=== PATIENT | male | born 1960 | race Native Hawaiian/Other Pacific Islander ===

== ENCOUNTER 2018-07-22 19:31 | Emergency (ER) | payer OTHER ==
[~2018-07-22] VITALS: Ht 182.9 cm; Wt 136.1 kg
[~2018-07-22 19:31] MED LIST: AMANTADINE100 MG PO; AMLO2.5T PO; ANTACID OR; ASA LO-DOSE81 MG OR; ASCORBIC ACD500 MG OR; BAYER ASPIRIN E81 MG PO; BENZTROPINE0.5 MG PO; CELEXA40 MG PO; CITALOPRAM40 MG PO; CLIN300C PO; DIOVAN320 MG PO; DIVA250T2 PO; DIVALPROEX125 M1 OR; DIVALPROEX250 M1 OR; DIVALPROEX500 MG PO; EASY-LAX100 MG PO; EMOLOIN22; FIBER LAXATIV0.52 GM OR; FINA5TAB2 PO; FORTAMET500 MG PO; FUROSEMIDE20 MG PO; GUAIFENESIN DM PO; HYDRALAZINE25 MG PO; INSUINJP SC; LATA0.00 OP; LEVETIRACETA500 MG OR; LIPITOR20 MG PO; LOPE2CAP17 PO; LORTAB 7.5-3251 TAB PO; MAGNSUS68 PO; MEDR10TA4 PO; MEDR2.5T19 PO; METO50TA27 PO; MULTI VITAMIN A1 TAB PO; NOVOLOG SC; PANT40TA PO; PROSCAR5 MG PO; RISP1TAB PO; ROWEEPRA500 MG PO; SEROQUEL25 MG PO; SODIUM CHLORIDE XX; TYLENOL325 MG OR; VALSARTAN320 MG PO; VITAMIN C1 CH1 PO; XALATAN0.005 % OP; ZINC SULFATE220 MG OR; [UNRECOGNIZED DRUG - OTHER] OR
[2018-07-22 20:11] LABS: PLATELET COUNT 152 K/uL (142-355)
[2018-07-22 20:19] LABS: POTASSIUM 4.5 mmol/L (3.6-5.2)
[2018-07-22] MEDS ORDERED: TYLENOL325 MG PO (20:55)
[2018-07-22] MEDS ORDERED: CITALOPRAM20 M1 PO (20:56)
[2018-07-22] MEDS ORDERED: CITALOPRAM10 M1 PO (20:57)
[2018-07-22] MEDS ORDERED: DIVALPROEX500 M1 PO (20:58)
[2018-07-22] MEDS ORDERED: DIVALPROEX250 MG PO (20:59)
[2018-07-22] MEDS ORDERED: JANUVIA100 MG PO ×2 (20:59→21:48)
[2018-07-22] MEDS ORDERED: INSUINJP SC (21:00)
[2018-07-22] MEDS ORDERED: ROWEEPRA500 MG PO (21:01)
[2018-07-22] MEDS ORDERED: NOVOLOG100 UNIT/M SC ×2 (21:02→21:04)
[2018-07-22] MEDS ORDERED: PANTOPRAZOLE SO40 M1 PO (21:02)
[2018-07-22] MEDS ORDERED: QUETIAPINE200 MG PO (21:03)
[2018-07-22] MEDS ORDERED: SODI1TAB PO (21:05)
[2018-07-22] MEDS ORDERED: DIVA500T2 PO (21:45)
[2018-07-22] MEDS ORDERED: DIVA250T PO (21:46)
[2018-07-22] MEDS ORDERED: HYDRALAZINE25 MG PO (21:47)
[2018-07-22] MEDS ORDERED: HYDRALAZINE50 MG PO (21:48)
[2018-07-22] MEDS ORDERED: METF500T PO (21:50)
[2018-07-22 22:30] VITALS: BP 140/76; TEMP 98.6
== END 2018-07-22 22:30 | disposition other institution (70) ==
LOC: ED 19:31
PROVIDERS: Emergency Medicine
DX: E87.1 Hypo-osmolality and hyponatremia (principal); F22 Delusional disorders; R45.1 Restlessness and agitation; Z04.6 Encounter for general psychiatric examination, requested by authority
CPT/HCPCS: 36415; 80053; 85027; 93005; 99285